=== PATIENT | male | born 1990 | race Two or more races ===

== ENCOUNTER 2024-10-10 23:13 | Emergency (ER) | payer OTHER, SELFPAY ==
[2024-10-10 23:16] VITALS: BMI 31.5
[2024-10-10 23:28] VITALS: BP 160/105; PULSE 90; RESP 19; TEMP 37.2; O2SAT 100
--- NOTE | 2024-10-10 23:33 | XR_ITS ---
Examination: Ultrasound soft tissue neck Technique: Grayscale sonographic images soft tissue neck Exam date and time: October 10, 2024 11:49 PM Indications: Palpable lump right neck noted beginning this morning Findings: 3.9 x 2.3 x 2.0 cm soft tissue mass hyperechoic submandibular with central low-density core, likely cystic change Impression: Soft tissue mass submental at the area concern, recommend elective CT soft tissue neck post intravenous contrast for further assessment of this mass
--- NOTE | 2024-10-10 23:34 | PD.EDRME ---
Rapid Medical Screening Exam RME Arrival date/time: 10/10/24 23:13 34 yo m present to Ed for c/o of throat swelling and painful swallowing for 1 day I have greeted and performed a focused initial assessment of this patient. A comprehensive ED assessment and evaluation of the patient, analysis of all test results, and completion of the medical decision making process will be conducted by additional ED providers. Chief Complaint: Neck Pain/Injury Vital signs: Vital Signs Temperature 98.9 F 10/10/24 23:28 Pulse Rate 90 10/10/24 23:28 Respiratory Rate 19 10/10/24 23:28 Blood Pressure 160/105 H 10/10/24 23:28 Pulse Oximetry (%) 100 10/10/24 23:28 Oxygen Delivery Method Room Air 10/10/24 23:28
[2024-10-11] MEDS: predniSONE 20 MG TABLET 60 MG PO (00:42)
[2024-10-11 01:25] LABS: Strep A Rapid Positive (Negative)
[2024-10-11] MEDS: IBUPROFEN TAB 400 MG TABLET 800 MG PO (01:27)
[2024-10-11] MEDS: OSELTAMIVIR 75 MG CAPSULE PO (01:27)
[2024-10-11] MEDS: AMOXICILLIN 250 MG CAPSULE 500 MG PO (01:48)
--- NOTE | 2024-10-11 02:18 | PRELIM_ITS ---
Soft tissue ultrasound. October 10, 2024 at 2349 hours Clinical history: Right neck swelling for 1 day. Comparison: No prior study is available for comparison. Findings: There is a 3.9 x 2.3 x 2.0 cm hyperechoic heterogeneous structure in the right submandibular fossa, likely an inflamed submandibular gland. There are adjacent subcentimeter nodules, likely lymph nodes. No fluid collection. Impression: Suspect right submandibular adenitis. Recommend CT with intravenous contrast for further evaluation. Report Electronically Signed By: Reynaldo De Jesus 10/11/2024 2:18:16 AM [EST]
--- NOTE | 2024-10-11 02:36 | PD.EDNECK ---
ED Neck Injury Pain RME/HPI General Chief Complaint: Neck Pain/Injury Stated Complaint: swelling to R neck area Time Seen by Provider: 10/11/24 01:29 Arrival date/time: 10/10/24 23:13 34 year old male present to emergency room with c/o right neck swelling and pain for 1 day. pt is tolerating fluids without complications LOCATION: posterior oral pharynx SEVERITY: Symptoms are described as being severe with limitations on activities of daily living QUALITY: Symptoms are described as being dull or achy CONTEXT: The patient is unable to identify any inciting events. DURATION/TIMING: The symptoms started approximately one day ago and have been constant this then. ASSOCIATED SYMPTOMS: The patient is unable to identify any other associated symptoms. MODIFYING FACTORS: worse with swallowing PERTINENT ROS: denies any food or liquids getting stuck, denies any generalized weakness, denies any trauma no chest pain, no abdominal pain, no rashes, no joint swelling REVIEW OF SYSTEMS: See History of Present Illness - with the exception of those mentioned in the history of present illness, all other systems reviewed and reported as negative GENERAL: In general the patient is awake, interactive, in an emergency department gurney. HEAD/EYES/EARS/NOSE/THROAT: normo-cephalic, atraumatic, mucus membranes are moist, anicteric, palpebral conjunctiva is pink, trachea is midline. CARDIOVASCULAR: regular rate and regular rhythm, no murmurs, heart sounds are not distant, strong pulses in all four extremities that are equal and symmetric bilateral upper and lower extremities, normal capillary refill. CHEST/PULMONARY: normal chest rise and fall, good air movement, clear to auscultation bilaterally, normal inspiratory to expiratory ratios without evidence of respiratory distress. NECK: + right anterior cerivical tenderness, no airway obstruction/abscess or ludwigs No midline/Paraspinal tenderness, no step off ROM/Strenght intact No Kernig and bruzinski sign. No trauma ABDOMEN: soft, not tender, no masses appreciated BACK: normal range of motion without pain. NEUROLOGICAL: cranio-facial features are symmetric, moves all four extremities equally without obvious limitations or weakness. EXTREMITY: no tenderness to palpation over the long bones or large joints of the bilateral upper and lower extremities, no joint swelling, no joint erythema, no signs of trauma, no unilateral leg swelling and no peripheral edema. SKIN: warm, dry, well-perfused, no jaundice, no rash, no telangiectasias or petechia. PSYCH: calm, cooperative, no evidence of psychosis or agitation RME / HPI RME / HPI Narrative: 10/10/24 23:13 34 yo m present to Ed for c/o of throat swelling and painful swallowing for 1 day I have greeted and performed a focused initial assessment of this patient. A comprehensive ED assessment and evaluation of the patient, analysis of all test results, and completion of the medical decision making process will be conducted by additional ED providers. Related Data Previous Rx's ?Medication ?Instructions ?Recorded amoxicillin 500 mg capsule 500 mg PO Q12H #20 caps 10/11/24 ibuprofen 800 mg tablet (IBU) 800 mg PO TID PRN fever or pain 10/11/24 #30 tabs methylprednisolone 4 mg tablets in 4 mg PO .as directed #21 tabs 10/11/24 a dose pack (Medrol (Martin)) Allergies Allergy/AdvReac Type Severity Reaction Status Date / Time Fish Containing Products Allergy Verified 10/10/24 23:21 shellfish derived Allergy Verified 10/10/24 23:21 Course Course Course Narrative: Patient presenting with sore throat consistent with bacterial pharyngitis.? ? Rapid strep was obtained and was positive.? The patient did not have trismus, hot potato voice, uvula deviation, unilateral tonsillar swelling, toxic appearance, drooling or pain with movement of the trachea to suggest peritonsillar abscess or epiglottitis.? No evidence of other bacterial infections including peritonsillar abscess, retropharyngeal abscess, epiglottitis.? Prescription for amoxicillin/medro dose martin provided. Patient advised to continue ibuprofen and Tylenol at home. Patient is to followup with primary physician if has continued symptoms.? + flu and strep? Plan:? Discharge from ED Prescribed amoxacillin 500mg bid x10d first dose given prior to discharge and instructed Pt to complete entire Ab course. medro dose martin? Patient will be contagious for first?hr while on Ab regimen. Advised Pt on supportive therapies, including using a cool-mist vaporizer/humidifer/steam from hot showers, limit talking, OTC throat lozenges and mouthwashes qd, gargling w/ warm saltwater, advancement of fluids as tolerated, nasal saline sprays, rest, OTC acetaminophen or ibuprofen as directed prn for pain control, frequent handwashing, and boiling/disposing of contaminated toothbrushes.? Instructed Pt to f/up w/ PCP or ETC should Sx worsen or not improve.? Quality Measures none Orders Category Date Time Status Bedside Influenza A&B Antigen Test NOW Care 10/11/24 01:01 Completed US soft tissue head neck Stat Exams 10/10/24 23:33 Taken Strep A Rapid Stat Lab 10/11/24 00:52 Completed Amoxicillin Cap [Amoxil Cap] Med 10/11/24 01:29 Discontinued 500 mg PO X1 ONE Ibuprofen Tab [Motrin Tab] Med 10/11/24 01:13 Discontinued 800 mg PO X1 ONE Oseltamivir [Tamiflu] Med 10/11/24 01:13 Discontinued 75 mg PO X1 ONE predniSONE Med 10/10/24 23:34 Discontinued 60 mg PO X1 ONE Reevaluation(s) Reevaluation #1: pt is feeling better Vital Signs Vital signs: Vital Signs Temperature 98.9 F 10/10/24 23:28 Pulse Rate 90 10/10/24 23:28 Respiratory Rate 19 10/10/24 23:28 Blood Pressure 160/105 H 10/10/24 23:28 Pulse Oximetry (%) 100 10/10/24 23:28 Oxygen Delivery Method Room Air 10/10/24 23:28 Neck Pain Patient data External records reviewed:: [facility] previous records Clinical information provided by:: patient Social determinants that could affect healthcare access:: none Patient has the following chronic illnesses:: n/a How is presenting disease/condition affected by chronic disease/condition?: no chronic disease Evaluation data The following diagnostics were reviewed and interpreted by me:: lab results and radiology exam(s) Lab and/or radiology exams considered but not ordered:: n/a Interpretation Summary: + strep + flu us: + right neck submandibular mass noted. Medications / Prescriptions Medications or Prescriptions considered but not ordered:: n/a Medication administrations:: Medication Administration History Discontinued Medications Amoxicillin (Amoxicillin 250 Mg Capsule) 500 mg PO X1 ONE Stop: 10/11/24 01:30 Last Admin: 10/11/24 01:48 Dose: 500 mg Documented By: NOLA Ibuprofen (Ibuprofen Tab 400 Mg Tablet) 800 mg PO X1 ONE Stop: 10/11/24 01:14 Last Admin: 10/11/24 01:27 Dose: 800 mg Documented By: NOLA Oseltamivir Phosphate (Oseltamivir 75 Mg Capsule) 75 mg PO X1 ONE Stop: 10/11/24 01:14 Last Admin: 10/11/24 01:27 Dose: 75 mg Documented By: NOLA Prednisone (Prednisone 20 Mg Tablet) 60 mg PO X1 ONE Stop: 10/10/24 23:35 Last Admin: 10/11/24 00:42 Dose: 60 mg Documented By: as stated above Consultations Consultation(s) initiated? (list below): No Diagnosis Neck Differential Diagnosis: torticollis, strain of neck muscle and other (strep, flu, salivary gland inflammation, lymph nodes ) Most likely diagnosis given after review of the tests above:: strep, flu Admission Indicated Admission indicated?: not indicated Admission Request Was there a request for admission?: No Disposition Plan Disposition Plan: Discharge Discharge Attestation Discharge Attestation: The patient and all family members were given an opportunity to ask questions and understood the discharge instructions. Discharge instructions specifically effects, indications for sooner follow up or return to the emergency department, and the expected course of current diagnosis. Patient condition: Stable Discharge Plan Plan Patient Disposition: HOME (Self Care) Health Concerns: Follow with PMD as directed Take tylenol or motrin as need Return to ED if sx worsen Prescriptions/Referrals Prescriptions/Med Rec: New amoxicillin 500 mg capsule 500 mg PO Q12H Qty: 20 0RF methylprednisolone [Medrol (Martin)] 4 mg tablets,dose pack 4 mg PO .as directed Qty: 21 0RF ibuprofen [IBU] 800 mg tablet 800 mg PO TID PRN (Reason: fever or pain) Qty: 30 0RF Referrals: Candelario El MD [Primary Care Provider] - In 1 week Problem List Clinical Impression: Strep pharyngitis, Influenza Patient/Caregiver Discharge Instructions Education Materials: ED Pharyngitis, Strep (Confirmed) Print Language: [place] Zealander Stand Alone Forms: [facility] Award Info., Patient Portal Info Letter
== END 2024-10-11 02:52 | disposition home or self-care (01) ==
PROVIDERS: Physician Assistant; Emergency Provider Emergency Medicine; PCP Family Medicine
DX: J02.0 Streptococcal pharyngitis (principal); J11.1 Influenza due to unidentified influenza virus with other respiratory manifestations
CPT/HCPCS: 76536; 87400; 87651; 99284; J7512; A9270